=== PATIENT | female | born 1975 | race African-American/Black ===

== ENCOUNTER → 2016-08-11 | Emergency (ER) | payer MEDICAID ==
[~2016-08-11] VITALS: Ht 182.9 cm; Wt 83.9 kg
[~2016-08-11] MED LIST: INSULIN REGULAR, HUMAN 100 UNIT/ML 10 ML VIAL ONE; INSULIN REGULAR, HUMAN 100 UNIT/ML 10 ML VIAL SQ ONE; IV NS 0.9% 1,000 ML BAG IV ONE
--- NOTE | 2016-08-11 18:37 | NUR ---
DR PEREZ AT BEDSIDE FOR EVAL.
--- NOTE | 2016-08-11 18:40 | NUR ---
PT REFUSING BLOOD DRAW. DEMANDING FOOD. DR PEREZ AWARE.
--- NOTE | 2016-08-11 18:43 | NUR ---
CALLED FOR FOOD TRAY
[2016-08-11 19:01] LABS: BASOPHILS # (AUTO) 0.1 /CMM (0.0-0.2); BASOPHILS % (AUTO) 0.6 % (0.0-2.0); EOSINOPHILS # (AUTO) 0.2 /CMM (0.0-0.7); EOSINOPHILS % (AUTO) 2.1 % (0.0-6.0); HEMATOCRIT 38 % (33-45); HEMOGLOBIN 11.8 g/dL (11.5-14.8); LYMPHOCYTES # (AUTO) 2.4 /CMM (0.8-4.8); LYMPHOCYTES % (AUTO) 28.4 % (20.0-44.0); MEAN CORPUSCULAR HEMOGLOBIN 21 PG (26.0-33.0); MEAN CORPUSCULAR HGB CONC 31 g/dl (31.0-36.0); MEAN CORPUSCULAR VOLUME 70 fL (82-100); MONOCYTES # (AUTO) 0.4 /CMM (0.1-1.30); MONOCYTES % (AUTO) 4.6 % (2.0-12.0); NEUTROPHILS # (AUTO) 5.3 /CMM (1.8-8.9); NEUTROPHILS % (AUTO) 64.3 % (43.0-81.0); PLATELET COUNT (AUTO) 355 /CMM (150-450); RDW COEFFICIENT OF VARIATION 16.2 (11.5-15.0); RED BLOOD CELL COUNT(AUTO) 5.53 MIL/uL (4.0-5.2); WHITE BLOOD COUNT (AUTO) 8.4 K/uL (4.3-11.0)
[2016-08-11 19:17] LABS: ALANINE AMINOTRANSFERASE 17 U/L (12-78); ALBUMIN 3.9 g/dL (3.4-5.0); ALKALINE PHOSPHATASE 90 U/L (46-116); ASPARTATE AMINOTRANSFERASE 13 U/L (15-37); BILIRUBIN,DIRECT 0.1 mg/dL (0.0-0.2); BILIRUBIN,TOTAL 0.3 mg/dL (0.2-1.0); CALCIUM, SERUM 10.3 mg/dL (8.5-10.1); CARBON DIOXIDE 26 mmol/L (21-32); CHLORIDE 96 mmol/L (98-107); GFR 61 mL/min (>60); POTASSIUM 3.7 mmol/L (3.5-5.1); SALICYLATE 3.4 mg/dL (2.8-20.0); SODIUM SERUM 136 mmol/L (136-145); TOTAL PROTEIN, SERUM 8.4 g/dL (6.4-8.2); UREA NITROGEN, BLOOD 15 mg/dL (7-18)
[2016-08-11 19:40] LABS: APPEARANCE,URINE Clear (CLEAR); BLOOD, URINE Large Ery/uL (NEGATIVE); COLOR,URINE Yellow (YELLOW); KETONES,URINE 80 (NEGATIVE); LEUKOCYTE ESTERASE ,URINE Negative (NEGATIVE); NITRITE, URINE Negative (NEGATIVE); PH,URINE 5.5 (5.0-8.0); PROTEIN,URINE >=300 mg/dl (NEGATIVE); UROBILINOGEN,URINE 0.2 EU/dL (0.2)
[2016-08-11 19:44] LABS: BILIRUBIN,URINE MODERATE (NEGATIVE); UGLUCOSE 500 MG/DL mg/dL (NEGATIVE)
[2016-08-11 19:44] LABS: ACETAMINOPHEN < 3 ug/ml (10-30); ALCOHOL, BLOOD < 2 mg/dL (0-0); GLUCOSE 353 mg/dL (74-106)
[2016-08-11 19:46] LABS: CANNABINOID, URINE NEGATIVE (NEGATIVE); PHENCYCLIDINE SCREEN,URINE NEGATIVE (NEGATIVE)
[2016-08-11 19:53] LABS: ADD URINE CULTURE NO; BACTERIA,URINE None seen /HPF (None Seen); CLINITEST,URINE 1%; RBC,URINE TOO NUMEROUS TO COUN /HPF (0-2); SQUAMOUS EPITHELIAL CELL,UR Few /HPF (None Seen)
--- NOTE | 2016-08-11 20:07 | NUR ---
INFORMED RT OF ABG
--- NOTE | 2016-08-11 20:19 | NUR ---
PT REFUSING IV START. DR PEREZ MADE AWARE.
--- NOTE | 2016-08-11 20:28 | NUR ---
PT ADMITS TO BE DIABETIC. DR PEREZ AWARE.
--- NOTE | 2016-08-11 22:20 | NUR ---
RECEIVED CALL FROM PRATIMA DOYLE,RN, PT IS ACCEPTED AT [facility] BY , NUMBER FOR REPORT IS [phone], * PT CAN ONLY BE TRANSPORTED ONCE BLOOD SUGAR IS LOWER
--- NOTE | 2016-08-11 22:34 | NUR ---
CALLED [facility] FOR AMBULANCE ETA 1 HOUR
--- NOTE | 2016-08-11 22:37 | NUR ---
CALLED [facility] BACK TO [facility]
--- NOTE | 2016-08-11 23:20 | NUR ---
MILTON DOYLE RN, PT ACCEPTED AT [facility]. PT ACCEPTED BY DR DODD. # FOR REPORT [phone], BUSINESS ANALYST [employer]
--- NOTE | 2016-08-11 23:34 | NUR ---
REPORT GIVEN TO CARITO AT [facility]. WILL ENDORSE TO CHARGE NURSE [facility] BLOOD SUGAR STILL OVER 250.
[2016-08-12 03:30] VITALS: BP 140/86
--- NOTE | 2016-08-12 03:58 | NUR ---
WITNESSED TERESA VENTURA RN ADMINISTER REGULAR INSULIN 5 UNITS SQ OCTAVIO
--- NOTE | 2016-08-12 06:35 | NUR ---
PT REFUSING REPEAT ACCUCHECK. DR JIMÉNEZ NOTIFIED.
== END | disposition home or self-care (01) ==
LOC: ER 18:08
DX: R45.851 Suicidal ideations (principal); E11.65 Type 2 diabetes mellitus with hyperglycemia; F19.10 Other psychoactive substance abuse, uncomplicated; F32.9 Major depressive disorder, single episode, unspecified; Z91.14 Patient's other noncompliance with medication regimen
CPT/HCPCS: 36415; 80048-TC; 80076-TC; 80305; 81000-TC; 82962-TC; 84703-TC; 85025-TC; A4606; G0480; G6039-TC; J1815; Z7610